=== PATIENT | female | born 1950 | race Caucasian/White ===

== ENCOUNTER 2016-09-03 12:41 | Emergency (ER) | payer OTHER ==
[~2016-09-03] VITALS: Ht 162.6 cm; Wt 66.1 kg
[2016-09-03 12:51] VITALS: TEMP 37.1; Ht 162.6 cm; Wt 66.1 kg
[2016-09-03] MEDS ORDERED: CLX40 PO (13:25)
[2016-09-03] MEDS ORDERED: CYM60 PO (13:25)
[2016-09-03] MEDS ORDERED: CYM30 PO (13:25)
[2016-09-03] MEDS ORDERED: PHN/100 PO (13:25)
[2016-09-03] MEDS ORDERED: KETOROLAC TROMETHAMINE 30 MG/ML VIAL IV STA (13:26)
[2016-09-03] MEDS ORDERED: DiphenhydrAMINE HCL 50 MG/ML VIAL IV STA (13:26)
[2016-09-03] MEDS ORDERED: ONDANSETRON INJ 2 MG/ML 2 ML VIAL IV STA (13:26)
[2016-09-03] MEDS ORDERED: SODIUM CHLORIDE 0.9% 1000ML 1,000 ML IV STA (13:26)
[2016-09-03] MEDS ORDERED: FLV1 PO (13:30)
[2016-09-03] MEDS ORDERED: LANS30CA12 PO (13:30)
[2016-09-03] MEDS ORDERED: LORA-741 PO (13:30)
[2016-09-03] MEDS ORDERED: PENT100C6 PO (13:30)
[2016-09-03] MEDS ORDERED: LOSA100T65 PO (13:30)
[2016-09-03] MEDS ORDERED: HYDR1CAP85 PO (13:30)
[2016-09-03] MEDS ORDERED: GABA800T PO (13:30)
[2016-09-03] MEDS ORDERED: ERGO1TAB12 (13:30)
--- NOTE | 2016-09-03 13:51 | DIAGNOSTIC IMAGING REPORT ---
CHEST ONE VIEW PORTABLE CLINICAL HISTORY: f fatigue, shortness of breath COMPARISON STUDY: No previous studies for comparison. FINDINGS: The bones soft tissues and hemidiaphragms are normal. The cardiomediastinal silhouette is normal. The lungs are clear. The pulmonary vasculature is normal. IMPRESSION: Negative chest. Electronically signed by: Burton Marrero M.D. 09/03/2016 1:50 PM Dictated Date/Time: 09/03/2016 1:50 PM
[2016-09-03 13:52] LABS: BASO % 0.7 %; BASO ABS # 0.05 K/uL (0-0.2); COMPLETE YES; EOS % 1.3 %; HEMATOCRIT 29.5 % (37-47); IG% 0.3 %; LYMPH ABS # 2.11 K/uL (1.2-3.4); MEAN CORPUSCULAR HEMOGLOBIN 34.6 pg (25-34); MEAN CORPUSCULAR HGB CONC 34.6 g/dl (32-36); MEAN PLATELET VOLUME 10.6 fL (7.4-10.4); MONO % 7.2 %; NEUT % 59.5 %; PLATELET COUNT 153 K/uL (130-400); RED BLOOD COUNT 2.95 M/uL (4.2-5.4)
[2016-09-03 14:04] VITALS: O2SAT 94
[2016-09-03 14:10] LABS: ALT/SGPT 28 U/L (12-78); AST/SGOT 26 U/L (15-37); BLOOD UREA NITROGEN 7 mg/dl (7-18); BUN/CREATININE RATIO 9.5 (10-20); CALCIUM 8.2 mg/dl (8.5-10.1); CARBON DIOXIDE 23 mmol/L (21-32); CHLORIDE 111 mmol/L (98-107); CREATININE 0.79 mg/dl (0.60-1.20); GLUCOSE 66 mg/dl (70-99); MAGNESIUM 2.2 mg/dl (1.8-2.4); POTASSIUM 4.2 mmol/L (3.5-5.1); SODIUM 142 mmol/L (136-145)
[2016-09-03 14:15] LABS: ALKALINE PHOSPHATASE 174 U/L (45-117)
[2016-09-03 14:19] LABS: URINE APPEARANCE CLEAR (CLEAR); URINE BILIRUBIN NEG (NEG); URINE COLOR YELLOW; URINE NITRITE NEG (NEG); URINE SPECIFIC GRAVITY 1.008 (1.000-1.030); UROBILINOGEN NEG (NEG)
[2016-09-03 14:21] LABS: MANUAL MICROSCOPIC REQUIRED? NO; REVIEW REQ? NO
[2016-09-03] MEDS ORDERED: PROCHLORPERAZINE 5 MG/ML 2 ML VIAL IV STA (14:48)
[2016-09-03] MEDS ORDERED: MAGNESIUM SULFATE 1GM / D5W 1 GM BAG IV STA (14:48)
[2016-09-03] MEDS ORDERED: DEXAMETHASONE SOD INJ 10 MG/ML VIAL IV ONE (15:00)
--- NOTE | 2016-09-03 16:24 | EMERGENCY ROOM VISIT NOTE ---
ED Visit Note First contact with patient: 12:57 I have seen and examined this patient with Thierry Quintreo and generally agree with the treatment plan as discussed. Current/Historical Medications Scheduled Citalopram (Citalopram Hydrobromide), 40 MG PO HS Duloxetine HCl (Duloxetine HCl), 30 MG PO HS Duloxetine HCl (Duloxetine HCl), 60 MG PO HS Folic Acid (Folic Acid), 1 MG PO DAILY Gabapentin (Neurontin), 800 MG PO TID Hydroxyzine Pamoate (Vistaril), 25 MG PO HS Lansoprazole (Prevacid), 30 MG PO DAILY Losartan Potassium (Cozaar), 100 MG PO DAILY Pentosan Polysulfate Sodium (Elmiron), 100 MG PO TID Phenytoin Sodium (Dilantin), 400 MG PO HS Scheduled PRN Lorazepam (Ativan), 0.5 MG PO Q6H PRN for Anxiety Miscellaneous Medications Ergocalciferol (Vitamin D2), Unknown Dose Allergies Coded Allergies: Iodine (Unverified Allergy, Severe, DIFFICULTY BREATHING. THROAT SWELLING , 09/03/16) Latex (Unverified Allergy, Unknown, ., 09/03/16) Penicillins (Unverified Allergy, Unknown, ., 09/03/16) Fisher (Unverified Allergy, Unknown, ., 09/03/16) Shellfish (Unverified Allergy, Unknown, ., 09/03/16) Sulfamethoxazole w/Trimethoprim (Unverified Allergy, Unknown, ., 09/03/16) Vital Signs Date Time Temp Pulse Resp B/P (MAP) Pulse Ox O2 Delivery O2 Flow Rate FiO2 09/03/16 15:08 72 16 112/56 92 Room Air 09/03/16 14:04 94 Room Air 09/03/16 14:03 58 18 136/51 94 Room Air 09/03/16 12:51 37.1 64 20 118/56 96 Room Air Laboratory Results 09/03/16 12:40 Red Blood Count 2.95, Mean Corpuscular Volume 100.0, Mean Corpuscular Hemoglobin 34.6, Mean Corpuscular Hemoglobin Concent 34.6, Mean Platelet Volume 10.6, Neutrophils (%) (Auto) 59.5, Lymphocytes (%) (Auto) 31.0, Monocytes (%) ( Auto) 7.2, Eosinophils (%) (Auto) 1.3, Basophils (%) (Auto) 0.7, Neutrophils # ( Auto) 4.04, Lymphocytes # (Auto) 2.11, Monocytes # (Auto) 0.49, Eosinophils # ( Auto) 0.09, Basophils # (Auto) 0.05 09/03/16 12:40 Test 09/03/16 12:40 09/03/16 14:10 09/03/16 15:13 White Blood Count 6.80 K/uL (4.8-10.8) Red Blood Count 2.95 M/uL (4.2-5.4) Hemoglobin 10.2 g/dL (12.0-16.0) Hematocrit 29.5 % (37-47) Mean Corpuscular Volume 100.0 fL (80-100) Mean Corpuscular Hemoglobin 34.6 pg (25-34) Mean Corpuscular Hemoglobin Concent 34.6 g/dl (32-36) Platelet Count 153 K/uL (130-400) Mean Platelet Volume 10.6 fL (7.4-10.4) Neutrophils (%) (Auto) 59.5 % Lymphocytes (%) (Auto) 31.0 % Monocytes (%) (Auto) 7.2 % Eosinophils (%) (Auto) 1.3 % Basophils (%) (Auto) 0.7 % Neutrophils # (Auto) 4.04 K/uL (1.4-6.5) Lymphocytes # (Auto) 2.11 K/uL (1.2-3.4) Monocytes # (Auto) 0.49 K/uL (0.11-0.59) Eosinophils # (Auto) 0.09 K/uL (0-0.5) Basophils # (Auto) 0.05 K/uL (0-0.2) RDW Standard Deviation 70.2 fL (36.4-46.3) RDW Coefficient of Variation 19.2 % (11.5-14.5) Immature Granulocyte % (Auto) 0.3 % Immature Granulocyte # (Auto) 0.02 K/uL (0.00-0.02) Anion Gap 8.0 mmol/L (3-11) Est Creatinine Clear Calc Drug Dose 64.7 ml/min Estimated GFR () 89.8 Estimated GFR (Non- 77.5 BUN/Creatinine Ratio 9.5 (10-20) Calcium Level 8.2 mg/dl (8.5-10.1) Magnesium Level 2.2 mg/dl (1.8-2.4) Total Bilirubin 0.3 mg/dl (0.2-1) Direct Bilirubin 0.1 mg/dl (0-0.2) Aspartate Amino Transf (AST/SGOT) 26 U/L (15-37) Alanine Aminotransferase (ALT/SGPT) 28 U/L (12-78) Alkaline Phosphatase 174 U/L (45-117) Troponin I < 0.015 ng/ml (0-0.045) Total Protein 7.4 gm/dl (6.4-8.2) Albumin 3.1 gm/dl (3.4-5.0) Urine Color YELLOW Urine Appearance CLEAR (CLEAR) Urine pH 7.0 (4.5-7.5) Urine Specific [place] 1.008 (1.000-1.030) Urine Protein NEG (NEG) Urine Glucose (UA) NEG (NEG) Urine Ketones NEG (NEG) Urine Occult Blood NEG (NEG) Urine Nitrite NEG (NEG) Urine Bilirubin NEG (NEG) Urine Urobilinogen NEG (NEG) Urine Leukocyte Esterase NEG (NEG) Bedside Glucose 136 mg/dl (70-90) Medications Administered Medications (Trade) Dose Ordered Sig/Pepito Route Start Time Stop Time Status Last Admin Dose Admin Ondansetron HCl (Zofran Inj) 4 mg NOW STAT IV 09/03/16 13:26 09/03/16 13:31 DC 09/03/16 13:58 4 MG Sodium Chloride 1,000 ml @ 999 mls/hr Q1H1M STAT IV 09/03/16 13:26 09/03/16 14:26 DC 09/03/16 13:58 999 MLS/HR Ketorolac Tromethamine (Toradol Inj) 30 mg NOW STAT IV 09/03/16 13:26 09/03/16 13:31 DC 09/03/16 14:00 30 MG Diphenhydramine HCl (Benadryl Inj) 25 mg NOW STAT IV 09/03/16 13:26 09/03/16 13:31 DC 09/03/16 14:00 25 MG Dexamethasone Sodium Phosphate (Decadron Inj) 10 mg NOW ONCE IV 09/03/16 15:00 09/03/16 15:01 DC 09/03/16 15:07 10 MG Prochlorperazine Edisylate (Compazine Inj) 10 mg NOW STAT IV 09/03/16 14:48 09/03/16 14:50 DC 09/03/16 14:59 10 MG Magnesium Sulfate (Magnesium Sulfate) 1 gm NOW STAT IV 09/03/16 14:48 09/03/16 14:50 DC 09/03/16 15:00 1 GM Departure Information Impression Primary Impression: Headache Additional Impression: Hypoglycemia Dispostion Home / Self-Care Referrals Rafal Justice M.D. (PCP) Forms HOME CARE DOCUMENTATION FORM, IMPORTANT VISIT INFORMATION Patient Instructions [facility] Additional Instructions Continue current medications as prescribed by your primary care provider. Alternate ibuprofen 600 mg and acetaminophen 650 mg every 3 hours as needed for pain. Stay well-hydrated with increased clear fluids. Eat small meals for 4-5 times a day every couple hours and avoid larger meals. Call your family physician tomorrow morning and inform them of today's ED visit and request follow-up care and treatment. Return to the ED for return of severe headaches, return of nausea, uncontrolled vomiting, any of the abnormal neurological symptoms we discussed or any new/ concerning symptoms. Problem Qualifiers
[2016-09-03 16:38] VITALS: BP 118/52; PULSE 57; O2SAT 96
--- NOTE | 2016-09-03 20:28 | EMERGENCY ROOM VISIT NOTE ---
ED Visit Note First contact with patient: 12:57 CHIEF COMPLAINT: Fatigue and headache. HISTORY OF PRESENT ILLNESS: Ms. Leggett is a 65 year-old white female who is brought into the ED via ambulance accompanied by family members complaining of generalized fatigue and a headache. Patient has a history of monoclonal gammapathy, COPD, chronic pain syndrome, coronary artery disease, migraine headaches. Family members reports that patient has been having ongoing right sided headaches for the last year. She had an MRI shortly after they were started which was reported as negative and she has had multiple CT scans that were negative. Family members also report that approximately 3 weeks ago she fell and struck her head and had an additional CT that was negative. All the way from their home today for her appointment, approximately 2-3 hours ago, patient reports she started developing a right posterior parietal/ occipital headache. Since that time her pain has been constant. She describes her pain as someone banging a hammer on her head. She rates her discomfort 8/ 10. The pain is nonradiating. She has not identified any aggravating or alleviating factors related to the pain. She has not had any medications for pain prior to arrival at the hospital. Associated with her pain she reports she feels generally fatigued and weak and she has been nauseated but has not vomited. During her review of symptoms she does report she is having double vision but reports that she normally has double vision and she is short of breath and she is always short of breath. Neither of these conditions have worsened or changed. Her current headache is similar to the ones she's been experiencing over the last year and is not like her normal migraine headache. Additionally she reports this is not the worst headache of her life and is similar to previous. She denies any recent trauma, dizziness, lightheadedness, hearing changes, difficulty speaking, difficulty swallowing, difficulty ambulating/coordinating body movements, neck pain/stiffness, upper respiratory tract symptoms, cough, chest pain, abdominal pain, nausea, vomiting.She reports taking without relief of pain. There is been associated light sensitivity, nausea and vomiting. He/ She denies fever, chills recently, sinus infection, runny nose, sore throat, no weakness or numbness of the extremities, no difficulty with speech, hearing or vision, and no trauma to the head and no neck pain. REVIEW OF SYSTEMS: As noted above in History of Present Illness; all body systems were reviewed with the patient and found to be negative unless noted above otherwise. PAST MEDICAL HISTORY: As noted above and depression, gastric reflux, anxiety disorder, osteoarthritis, hypertension, lumbago, struck to sleep apnea, limb movement disorder, peripheral neuropathy and seizure disorder. CURRENT MEDICATIONS: Medications Dose Route/Sig Max Daily Dose Days Date Category Ativan (Lorazepam) 0.5 Mg Tab 0.5 Mg PO Q6H PRN 09/03/16 Reported Vitamin D2 (Ergocalciferol) 2,000 Unit Tab Unknown Dose 09/03/16 Reported Elmiron (Pentosan Polysulfate Sodium) 100 Mg Cap 100 Mg PO TID 09/03/16 Reported Folic Acid 1 Mg Tab 1 Mg PO DAILY 09/03/16 Reported Neurontin (Gabapentin) 800 Mg Tab 800 Mg PO TID 09/03/16 Reported Cozaar (Losartan Potassium) 100 Mg Tab 100 Mg PO DAILY 09/03/16 Reported Prevacid (Lansoprazole) 30 Mg Capcr 30 Mg PO DAILY 09/03/16 Reported Vistaril (Hydroxyzine Pamoate) 25 Mg Cap 25 Mg PO HS 09/03/16 Reported Dilantin (Phenytoin Sodium) 100 Mg Cap 400 Mg PO HS 09/03/16 Reported Citalopram Hydrobromide (Citalopram) 40 Mg Tab 40 Mg PO HS 09/03/16 Reported Duloxetine HCl 60 Mg Cap 60 Mg PO HS 09/03/16 Reported Duloxetine HCl 30 Mg Cap 30 Mg PO HS 09/03/16 Reported ALLERGIES TO MEDICATIONS: Iodine, Lasix, penicillin, Bactrim. SOCIAL HISTORY: Patient is not employed; she feels safe in her home environment ; she admits to tobacco use. PHYSICAL EXAM: Vital Signs: Date Time Temp Pulse Resp B/P (MAP) Pulse Ox O2 Delivery O2 Flow Rate FiO2 09/03/16 16:38 57 18 118/52 96 09/03/16 15:08 72 16 112/56 92 Room Air 09/03/16 14:03 58 18 136/51 94 Room Air 09/03/16 12:51 37.1 64 20 118/56 96 Room Air GENERAL: 65 year-old white female in moderate distress due to pain, afebrile and hemodynamically stable. Found lying with her head elevated with her family members. NEUROLOGIC: Awake, alert and oriented to person place and time. Answering questions appropriately and following commands. Cranial nerves II-XII grossly intact. No focal neurologic deficits noted. Good short-term and long-term recall. SKIN: Warm, dry and pink. No rashes, lesions or soft tissue trauma noted. HEENT: Normocephalic, atraumatic. Skull: No bony deformity, depressions or tenderness. No raccoon's eyes or vasquez signs. No drainage from the ears or the nostril; no hemotympanum. Face: No bony tenderness, swelling or ecchymosis. PERRLA. EOMI without nystagmus. Funduscopic examination is unremarkable with no signs of increased intracranial pressure. Sclerae white and conjunctiva pink without drainage. No malocclusion. No intraoral trauma. Airway patent. No JVD. BACK: No tenderness over the cervical, thoracic or lumbar bony spines. No local swelling, erythema, bony deformity or crepitus. No nuchal rigidity or meningismus. No CVA tenderness. THORAX: Lungs clear to auscultation and equal bilaterally mild decreased bilateral lower lobe decreased air movements. With no wheezing, crackles, rhonchi or stridor and equal chest wall movements. HEART: Regular rate and rhythm with no murmurs, rubs or gallops. ABDOMEN: Soft and nontender with bowel sounds present in all quadrants; no rigidity, rebound tenderness, organomegaly or guarding. MUSCULOSKELETAL: Full range of motion of all joints without any significant discomfort and the gait is normal. ED COURSE: Patient is assessed as noted above. Laboratory Testing: Test 09/03/16 12:40 09/03/16 14:10 09/03/16 15:13 Range/Units White Blood Count 6.80 4.8-10.8 K/uL Red Blood Count 2.95 4.2-5.4 M/uL Hemoglobin 10.2 12.0-16.0 g/dL Hematocrit 29.5 37-47 % Mean Corpuscular Volume 100.0 80-100 fL Mean Corpuscular Hemoglobin 34.6 25-34 pg Mean Corpuscular Hemoglobin Concent 34.6 32-36 g/dl Platelet Count 153 130-400 K/uL Mean Platelet Volume 10.6 7.4-10.4 fL Neutrophils (%) (Auto) 59.5 % Lymphocytes (%) (Auto) 31.0 % Monocytes (%) (Auto) 7.2 % Eosinophils (%) (Auto) 1.3 % Basophils (%) (Auto) 0.7 % Neutrophils # (Auto) 4.04 1.4-6.5 K/uL Lymphocytes # (Auto) 2.11 1.2-3.4 K/uL Monocytes # (Auto) 0.49 0.11-0.59 K/uL Eosinophils # (Auto) 0.09 0-0.5 K/uL Basophils # (Auto) 0.05 0-0.2 K/uL RDW Standard Deviation 70.2 36.4-46.3 fL RDW Coefficient of Variation 19.2 11.5-14.5 % Immature Granulocyte % (Auto) 0.3 % Immature Granulocyte # (Auto) 0.02 0.00-0.02 K/uL Sodium Level 142 136-145 mmol/L Potassium Level 4.2 3.5-5.1 mmol/L Chloride Level 111 98-107 mmol/L Carbon Dioxide Level 23 21-32 mmol/L Anion Gap 8.0 3-11 mmol/L Blood Urea Nitrogen 7 7-18 mg/dl Creatinine 0.79 0.60-1.20 mg/dl Est Creatinine Clear Calc Drug Dose 64.7 ml/min Estimated GFR () 89.8 Estimated GFR (Non- 77.5 BUN/Creatinine Ratio 9.5 10-20 Random Glucose 66 70-99 mg/dl Calcium Level 8.2 8.5-10.1 mg/dl Magnesium Level 2.2 1.8-2.4 mg/dl Total Bilirubin 0.3 0.2-1 mg/dl Direct Bilirubin 0.1 0-0.2 mg/dl Aspartate Amino Transf (AST/SGOT) 26 15-37 U/L Alanine Aminotransferase (ALT/SGPT) 28 12-78 U/L Alkaline Phosphatase 174 45-117 U/L Troponin I < 0.015 0-0.045 ng/ml Total Protein 7.4 6.4-8.2 gm/dl Albumin 3.1 3.4-5.0 gm/dl Urine Color YELLOW Urine Appearance CLEAR CLEAR Urine pH 7.0 4.5-7.5 Urine Specific [place] 1.008 1.000-1.030 Urine Protein NEG NEG Urine Glucose (UA) NEG NEG Urine Ketones NEG NEG Urine Occult Blood NEG NEG Urine Nitrite NEG NEG Urine Bilirubin NEG NEG Urine Urobilinogen NEG NEG Urine Leukocyte Esterase NEG NEG Bedside Glucose 136 70-90 mg/dl Patient was hydrated with normal saline, she received 4 mg of Zofran and 10 mg of Compazine IV for her nausea, 30 mg of Toradol IV for pain; patient and family member refused opiates, 25 mg of Benadryl IV, 10 mg of Decadron IV, and 1 g of magnesium sulfate IV. Patient was reassessed multiple times during her stay in the emergency department. Patient was fed after resolution of nausea because of her blood sugar being 66. A recheck of her blood sugar after reading was 136. Patient's case was reviewed with Dr. Zavala; independently assessed the patient and we agreed on diagnostic approach, treatment, disposition and plan. Patient and family members were educated about her condition and instructed on her treatment plan; she verbalized understanding and agreement with this plan. CLINICAL IMPRESSION: Acute on chronic headache. DECISION MAKIN-year-old female who presents for evaluation of headache. She is afebrile, well appearing, and hemodynamically stable. She has no signs of a sinus, dental , or ear infection and no evidence of meningismus. She is neurologically intact. I do not suspect a headache to be secondary to a subarachnoid hemorrhage, meningitis, encephalitis, or intracranial mass lesion. DISPOSITION: Patient was discharged to home in stable condition accompanied by her family; prior to departure she was reassessed and subjectively reported that she was pain and symptom-free. DISCHARGE INSTRUCTIONS: Continue current medications as prescribed by your primary care provider. Alternate ibuprofen 600 mg and acetaminophen 650 mg every 3 hours as needed for pain. Stay well-hydrated with increased clear fluids. Eat small meals for 4-5 times a day every couple hours and avoid larger meals. Call your family physician tomorrow morning and inform them of today's ED visit and request follow-up care and treatment. Return to the ED for return of severe headaches, return of nausea, uncontrolled vomiting, any of the abnormal neurological symptoms we discussed or any new/ concerning symptoms.
== END 2016-09-03 16:39 | disposition home or self-care (01) ==
LOC: EDBD 12:41 → C.EDC 12:42
DX: R51 Headache (principal); G89.29 Other chronic pain; R11.0 Nausea; E16.2 Hypoglycemia, unspecified; I10 Essential (primary) hypertension; K21.9 Gastro-esophageal reflux disease without esophagitis; F32.9 Major depressive disorder, single episode, unspecified; M19.90 Unspecified osteoarthritis, unspecified site; G40.909 Epilepsy, unspecified, not intractable, without status epilepticus; F17.200 Nicotine dependence, unspecified, uncomplicated; Z88.0 Allergy status to penicillin; Z88.8 Allergy status to other drugs, medicaments and biological substances; Z91.09 Other allergy status, other than to drugs and biological substances